=== PATIENT | male | born 1965 | race Caucasian/White ===

== ENCOUNTER 2018-03-07 17:12 | Emergency (ER) | payer OTHER ==
[~2018-03-07] VITALS: Ht 188 cm; Wt 104.3 kg
[~2018-03-07 17:12] MED LIST: BACTRIM DS TAB1 EACH PO; DUONEB 2.5-0.5 M3 ML INH; GABAPENTIN600 M1 PO; IBUPROFEN 800800 M1 PO; LODINE XL400 MG PO; MIRALAX255 GM; MOBIC15 MG PO; MS CONTIN 30 MG30 M1 PO; MS CONTIN15 MG PO; NEURONTIN 300300 M1 PO; NEURONTIN600 MG PO; NORCO 5-325 TA1 EACH PO; OXYCODONE HCL15 MG PO; PENICILLIN V P500 MG PO
[2018-03-07 18:41] LABS: HEMATOCRIT 47.2 % (42.0-52.0); HEMOGLOBIN 15.8 gm/dL (14.0-18.0); MCHC 33.3 g/dL (28.0-37.0); MCV 83.9 fL (80.0-100.0); NUCLEATED RBCS 0 /100WBC; PLATELET COUNT* 233 thou/uL (150-400); RBC 5.63 mil/uL (4.50-6.00); RDW-CV 20.8 % (10.5-14.5); WBC 6.3 thou/uL (4.0-11.0)
[2018-03-07 18:44] LABS: PROTIME 9.4 Seconds (9.20-11.50)
[2018-03-07 19:05] LABS: ABSOLUTE EOSINOPHILS 0.1 thou/uL (0.0-0.7); ABSOLUTE LYMPHOCYTES 1.4 thou/uL (0.8-5.3); ABSOLUTE MONOCYTES 0.4 thou/uL (0.0-1.2); ABSOLUTE NEUTROPHILS 4.5 thou/uL (1.6-8.1); PLATELET ESTIMATE ADEQUATE
[2018-03-07 19:06] LABS: ANISOCYTOSIS 1+
[2018-03-07 19:29] LABS: CREATININE 0.9 mg/dL (0.6-1.3); POTASSIUM 3.8 mmol/L (3.5-5.1); TOTAL BILIRUBIN 0.1 mg/dL (<0.1-1.0); TOTAL PROTEIN 6.5 g/dL (6.4-8.2)
[2018-03-07 19:33] LABS: URINE BILIRUBIN NEGATIVE (Negative); URINE BLOOD NEGATIVE (Negative); URINE CLARITY CLEAR; URINE COLOR YELLOW; URINE GLUCOSE-RANDOM NEGATIVE (Negative); URINE KETONES NEGATIVE (Negative); URINE LEUKOCYTES NEGATIVE (Negative); URINE NITRITE NEGATIVE (Negative); URINE PROTEIN NEGATIVE (Negative); URINE SPECIFIC GRAVITY <= 1.005 (1.005-1.030); URINE UROBILINOGEN 0.2 E.U./dl (0.2-1.0)
[2018-03-07] MEDS ORDERED: TRAMADOL 50 MG50 MG PO (20:22)
[2018-03-07 20:41] VITALS: BP 111/74
== END 2018-03-07 20:42 | disposition home or self-care (01) ==
LOC: M.ERS 17:12
PROVIDERS: Physician Assistant
DX: K40.90 Unilateral inguinal hernia, without obstruction or gangrene, not specified as recurrent (principal); M25.551 Pain in right hip; G89.29 Other chronic pain; M54.9 Dorsalgia, unspecified; F17.210 Nicotine dependence, cigarettes, uncomplicated; Z88.6 Allergy status to analgesic agent